=== PATIENT | female | born 1980 | race African-American/Black ===

== ENCOUNTER 2023-12-24 17:19 | Emergency (ER) | payer SELFPAY ==
[~2023-12-24] VITALS: Ht 175.3 cm; Wt 100.0 kg
[2023-12-24 17:31] VITALS: TEMP 98.1; O2SAT 99
[2023-12-24] MEDS: SODIUM CHLORIDE 0.9% 1,000 ML IV ONE (18:21)
[2023-12-24 18:33] LABS: BASOPHILS % 1.2 % (0.0-2.0); EOSINOPHILS % 1.2 % (0.0-5.0); HEMATOCRIT. 36.1 % (36.0-48.0); HEMOGLOBIN. 12.3 g/dL (12.0-16.0); LYMPHOCYTES % 27.1 % (20.0-50.0); MEAN CORPUSCULAR HEMOGLOBIN 29.5 pg (28.0-32.0); MEAN CORPUSCULAR HGB CONC 34.2 g/dL (31.0-37.0); MEAN CORPUSCULAR VOLUME 86.2 fL (81.0-99.0); MEAN PLATELET VOLUME 8.8 fl (7.4-10.4); MONOCYTES % 9.2 % (2.0-8.0); NEUTROPHILS % 61.3 % (40.0-76.0); PLATELET 254 x1000/uL (130-400); RED BLOOD CELL COUNT 4.18 mill/uL (4.2-5.4); RED CELL DISTRIBUTION WIDTH 13.9 % (11.6-14.6); WHITE BLOOD COUNT 4.8 x1000/uL (4.5-11.0)
[2023-12-24 18:41] LABS: CLARITY URINE CLEAR (CLEAR); COLOR URINE YELLOW (YELLOW); GLUCOSE URINE NEGATIVE (NEGATIVE); KETONES URINE NEGATIVE (NEGATIVE); LEUKOCYTE ESTERASE URINE NEGATIVE (NEGATIVE); NITRITE URINE NEGATIVE (NEGATIVE); OCCULT BLOOD URINE NEGATIVE (NEGATIVE); PROTEIN URINE NEGATIVE (NEGATIVE); UROBILINOGEN URINE 0.2 E.U./dL (0.2-1.0)
[2023-12-24 18:50] LABS: ALANINE AMINOTRANSFERASE 20 IU/L (10-49); ALBUMIN 4.3 g/dL (3.2-4.8); ASPARTATE AMINOTRANSFERASE 24 IU/L (<34); BILIRUBIN TOTAL 0.5 mg/dL (0.1-1.0); CALCIUM 9.1 mg/dL (8.7-10.4); CARBON DIOXIDE 23 mEq/L (21-32); CHLORIDE 105 mEq/L (98-107); CREATININE 0.8 mg/dL (0.6-1.0); GLUCOSE 113 mg/dL (70-105); POTASSIUM 3.7 mEq/L (3.5-5.1); PROTEIN TOTAL 7.3 g/dL (6.0-8.3); SODIUM 136 mEq/L (136-145); TROPONIN I HIGH SENSITIVITY 5 ng/L (3.0-34); UREA NITROGEN BLOOD 12 mg/dL (9-23)
[2023-12-24 18:51] LABS: HCG SCREEN NEGATIVE
[2023-12-24 19:01] VITALS: BP 155/82; PULSE 88; RESP 16
[2023-12-24 22:36] LABS: D-DIMER 0.19 mg/L FEU (<0.50); INR 0.9; PROTHROMBIN TIME 10.6 sec (9.6-11.0)
[2023-12-24 22:38] LABS: TROPONIN I HIGH SENSITIVITY 4 ng/L (3.0-34)
== END 2023-12-24 22:11 | disposition home or self-care (01) ==
LOC: ER 17:19
DX: R42 Dizziness and giddiness (principal); R00.2 Palpitations; I10 Essential (primary) hypertension
CPT/HCPCS: 80053; 81003; 84703; 83880; 83690; 85025; 85379; 85610; 84484; 36415; 71045; 70450; 93005; 96360; 99285; J7030; Z7610 ×2

== ENCOUNTER 2025-07-23 23:36 | Emergency (ER) | payer MEDICAID ==
[~2025-07-23] VITALS: Ht 172.7 cm; Wt 138.0 kg
[2025-07-24 00:10] VITALS: O2SAT 99
[2025-07-24 01:25] LABS: BASOPHILS % 0.7 % (0.0-2.0); EOSINOPHILS % 3.8 % (0.0-5.0); HEMATOCRIT. 35.9 % (36.0-48.0); HEMOGLOBIN. 12.1 g/dL (12.0-16.0); LYMPHOCYTES % 36.3 % (20.0-50.0); MEAN PLATELET VOLUME 8.6 fl (7.4-10.4); MONOCYTES % 9.5 % (2.0-8.0); NEUTROPHILS % 49.7 % (40.0-76.0); PLATELET 254 x1000/uL (130-400); RED BLOOD CELL COUNT 4.12 mill/uL (4.2-5.4); RED CELL DISTRIBUTION WIDTH 13.5 % (11.6-14.6)
[2025-07-24 02:10] LABS: CREATININE 1.2 mg/dL (0.6-1.0)
[2025-07-24 02:11] LABS: UREA NITROGEN BLOOD 13.0 mg/dL (9-23)
[2025-07-24] MEDS ORDERED: ASPI-986 MT (03:57)
[2025-07-24 04:19] VITALS: BP 172/89; PULSE 85; RESP 16; TEMP 37; O2SAT 100
== END 2025-07-24 04:19 | disposition home or self-care (01) ==
LOC: ER 23:36
DX: R20.0 Anesthesia of skin (principal); I10 Essential (primary) hypertension; Z79.82 Long term (current) use of aspirin; Z88.6 Allergy status to analgesic agent
CPT/HCPCS: 36415; 80048; 85025; 99284